=== PATIENT | female | born 1975 | race Caucasian/White ===

== ENCOUNTER 2017-08-20 12:36 | Emergency (ER) | payer MEDICAID, OTHER ==
[~2017-08-20] VITALS: Ht 167.6 cm; Wt 58.0 kg
[~2017-08-20 12:36] MED LIST: DEPA500T3 PO; DICY1TAB26 PO; LACT PO; METR-1 PO; NEUR100C PO; QUET100 PO
[2017-08-20 12:55] VITALS: BP 127/72; PULSE 116; RESP 15; TEMP 98; O2SAT 98
[2017-08-20] MEDS ORDERED: LURA20TA PO (12:56)
[2017-08-20] MEDS ORDERED: XANA2TAB2 PO (12:56)
[2017-08-20] MEDS ORDERED: DEPA500T PO (12:59)
[2017-08-20 13:43] LABS: AUTOMATED NEUTROPHIL # 4.3 TH/MM3 (1.8-7.7); BASOPHIL % 0.2 % (0.0-2.0); EOSINOPHIL # 0.1 TH/MM3 (0-0.4); EOSINOPHIL % 2.1 % (0.0-4.0); HEMATOCRIT 37.3 % (35.0-46.0); HEMO FLAGS DIFF FINAL; LYMPHOCYTE # 2.2 TH/MM3 (1.0-4.8); MEAN CELL VOLUME 85.8 FL (80.0-100.0); MEAN CORPUSCULAR HEMOGLOBIN 28.5 PG (27.0-34.0); MEAN CORPUSCULAR HGB CONC 33.2 % (32.0-36.0); MONO % 5.1 % (0.0-8.0); NEUT % 60.6 % (16.0-70.0); PLATELET COUNT 132 TH/MM3 (150-450); RED BLOOD COUNT 4.35 MIL/MM3 (4.00-5.30)
--- NOTE | 2017-08-20 13:53 | PD ---
HPI Chief Complaint: OD/ Ingestion Time Seen by Provider: 13:11 Travel History International Travel<30 days: No Contact w/Intl Traveler<30days: No Traveled to known affect area: No History of Present Illness HPI 41 yo F arrives by EMS 2/2 AMS on scene. Pt received Narcan 0.4mg and abruptly awake per EMS. In ED pt c/o chronic LLE pain and chronic RUQ pain, both multiple years in duration. Pt reports comliance with xanax and lortab as prescribed. She denies illicit drug abuse. No alcohol abuse. No intent of self- harm. Location generalized/neuropsych. Timing constant. PFSH Past Medical History Bipolar Disorder: Yes Anxiety: Yes Depression: Yes Diminished Hearing: No Endocrine: No Glaucoma: No Genitourinary: No Hepatitis: Yes (C) Hiatal Hernia: No Hypertension: Yes Immune Disorder: No Musculoskeletal: No Neurologic: No Psychiatric: Yes (Depression and Bipolar Disorder since she was a teenager) Reproductive: No Respiratory: Yes (PNEUMOTHORAX) Immunizations Current: Yes Migraines: Yes Myocardial Infarction: Yes Seizures: Yes Thyroid Disease: Yes (HYPO) Tetanus Vaccination: > 5 Years Influenza Vaccination: No ?: Not LMP: 07/2017 : 4 Para: 1 Miscarriage: 0 : 3 Tubal Ligation: Yes Past Surgical History Abdominal Surgery: Yes (appendectomy) Appendectomy: Yes Section: Yes Gynecologic Surgery: Yes (d+c) Other Surgery: Yes (left leg fasciotomy) Social History Alcohol Use: Yes Tobacco Use: No Substance Use: Yes Allergies-Medications (Allergen,Severity, Reaction): Coded Allergies: aripiprazole (Unverified Allergy, Severe, MUSCLE SPASMS, 08/20/17) morphine (Unverified Allergy, Severe, HALLUCINATIONS, 08/20/17) Reported Meds & Prescriptions Reported Meds & Active Scripts Active Reported Depakote DR (Divalproex Sodium) 500 Mg Tabdr 500 Mg PO BID Xanax (Alprazolam) 2 Mg Tab 2 Mg PO Q8H PRN Latuda (Lurasidone) 20 Mg Tab 15 Mg PO DAILY Review of Systems Except as stated in HPI: all other systems reviewed are Neg General / Constitutional: No: Fever Cardiovascular: No: Chest Pain or Discomfort, Palpitations Physical Exam Narrative GENERAL: 41 yo F, WNWD, no acute distress SKIN: Warm and dry. HEAD: Atraumatic. Normocephalic. EYES: Pupils equal and round. No scleral icterus. No injection or drainage. ENT: No nasal bleeding or discharge. Mucous membranes pink and moist. NECK: Trachea midline. No JVD. CARDIOVASCULAR: Regular rate and rhythm. RESPIRATORY: No accessory muscle use. Clear to auscultation. Breath sounds equal bilaterally. GASTROINTESTINAL: Abdomen soft, non-tender, nondistended. Hepatic and splenic margins not palpable. MUSCULOSKELETAL: Extremities without clubbing, cyanosis, or edema. No obvious deformities. NEUROLOGICAL: Awake and alert. No obvious cranial nerve deficits. Motor grossly within normal limits. Five out of 5 muscle strength in the arms and legs. Normal speech. PSYCHIATRIC: Appropriate mood and affect; insight and judgment normal. Data Data Last Documented VS Vital Signs Date Time Temp Pulse Resp B/P (MAP) Pulse Ox O2 Delivery O2 Flow Rate FiO2 08/20/17 12:55 98.0 116 15 127/72 (90) 98 VS reviewed Orders Orders Complete Blood Count With Diff (08/20/17 13:06) Comprehensive Metabolic Panel (08/20/17 13:06) Urinalysis - C+S If Indicated (08/20/17 13:06) Ed Urine Pregnancytest Poc (08/20/17 13:06) Drug Screen, Random Urine (08/20/17 13:06) Alcohol (Ethanol) (08/20/17 13:06) Salicylates (Aspirin) (08/20/17 13:06) Labs Laboratory Tests Test 08/20/17 13:05 White Blood Count 7.0 TH/MM3 Red Blood Count 4.35 MIL/MM3 Hemoglobin 12.4 GM/DL Hematocrit 37.3 % Mean Corpuscular Volume 85.8 FL Mean Corpuscular Hemoglobin 28.5 PG Mean Corpuscular Hemoglobin Concent 33.2 % Red Cell Distribution Width 15.0 % Platelet Count 132 TH/MM3 Mean Platelet Volume 9.6 FL Neutrophils (%) (Auto) 60.6 % Lymphocytes (%) (Auto) 32.0 % Monocytes (%) (Auto) 5.1 % Eosinophils (%) (Auto) 2.1 % Basophils (%) (Auto) 0.2 % Neutrophils # (Auto) 4.3 TH/MM3 Lymphocytes # (Auto) 2.2 TH/MM3 Monocytes # (Auto) 0.4 TH/MM3 Eosinophils # (Auto) 0.1 TH/MM3 Basophils # (Auto) 0.0 TH/MM3 CBC Comment DIFF FINAL Differential Comment MDM Medical Decision Making Medical Screen Exam Complete: Yes Emergency Medical Condition: Yes Medical Record Reviewed: Yes Differential Diagnosis polysubstance abuse, etoh abuse, alcoholism Narrative Course Pt eloped from ED shortly following bedside evaluation. Unfortunately this will be documented as a left against medical advise. Diagnosis Primary Impression: Left against medical advice Disposition: 07 AGAINST MEDICAL ADVICE Condition: Stable Jair Washburn MD Aug 20, 2017 13:53
[2017-08-20 14:05] LABS: ANION GAP 8 MEQ/L (5-15); BICARBONATE 25.9 MEQ/L (21.0-32.0); BLOOD UREA NITROGEN 15 MG/DL (7-18); CHLORIDE 107 MEQ/L (98-107); GLOMERULAR FILTRATION RATE 69 ML/MIN (>89); POTASSIUM 3.9 MEQ/L (3.5-5.1); SODIUM (NA) 141 MEQ/L (136-145)
[2017-08-20 14:06] LABS: ALCOHOL LESS THAN 3 MG/DL (0-5); ALT (GPT) 37 U/L (10-53); AST (GOT) 26 U/L (15-37)
[2017-08-20 14:09] LABS: ALKALINE PHOSPHATASE 65 U/L (45-117); TOTAL BILIRUBIN ADULT 0.2 MG/DL (0.2-1.0)
[2017-08-20 14:11] LABS: BACTERIA, URINE RARE /hpf; BLOOD, URINE LARGE (NEG); CALCIUM OXALATE CRYSTALS,URINE MOD /hpf; COMMENT (UR) CULTURE INDICATED; CULTURE IF INDICATED CULTURE INDICATED; GLUCOSE,URINE NEG (NEG); KETONE, URINE NEG (NEG); MUCUS URINE FEW /lpf (OCC); NITRITE,URINE NEG (NEG); PH, URINE 5.5 (5.0-8.5); SQUAMOUS EPITHELIAL CELL URINE 2 /hpf (0-5); URINE COLOR YELLOW (YELLW/STRAW)
== END 2017-08-20 13:30 | disposition left against medical advice (07) ==
LOC: NEPC 12:36
DX: R41.82 Altered mental status, unspecified (principal); M79.605 Pain in left leg; G89.29 Other chronic pain; F31.9 Bipolar disorder, unspecified; F41.9 Anxiety disorder, unspecified; I10 Essential (primary) hypertension; I25.2 Old myocardial infarction; R56.9 Unspecified convulsions; E03.9 Hypothyroidism, unspecified
CPT/HCPCS: 80053; 80307; 81001; 84703; 85025; 87086; 99283

== ENCOUNTER 2017-09-03 22:27 | Emergency (ER) | payer MEDICAID ==
[~2017-09-03] VITALS: Ht 160 cm; Wt 59.0 kg
[~2017-09-03 22:27] MED LIST changes: +DEPA500T PO; -DEPA500T3 PO; -DICY1TAB26 PO; -LACT PO; +LURA20TA PO; -METR-1 PO; -NEUR100C PO; -QUET100 PO; +XANA2TAB2 PO
[2017-09-03 22:40] VITALS: BP 140/98; PULSE 92; RESP 18; TEMP 97.6; O2SAT 98
[2017-09-03] MEDS ORDERED: BENZTROPINE MESYLATE 1 MG TAB PO ONE (22:45)
--- NOTE | 2017-09-03 23:16 | PD ---
HPI Chief Complaint: Allergic/Adverse Reaction Time Seen by Provider: 22:45 Travel History International Travel<30 days: No Contact w/Intl Traveler<30days: No Traveled to known affect area: No History of Present Illness HPI 41-year-old female presents to the emergency department for complaint of tongue spasm. According the patient she takes a to go which causes her to have some dystonic reaction affecting the tongue and it is typically managed well with Cogentin. Patient states that she does not have any Cogentin at home and restarted taking her what to do last evening. Patient states this evening she started noticing some symptoms consistent with her having spasm of the tongue. Patient has not had any urticaria no lip swelling tongue swelling throat swelling no stridor no hoarseness no shortness of breath no wheezing no near- syncope or syncope. Patient states these are typical symptoms that she has takes her Latuda antidepressant without taking Cogentin. Patient denies other concerns or complaints. PFSH Past Medical History Narrative Medical Anxiety depression hepatitis C hypertension pneumothorax migraine myocardial infarction hypothyroidism appendectomy left leg fasciotomy alcohol use substance use; nursing notes reviewed Bipolar Disorder: Yes Anxiety: Yes Depression: Yes Diminished Hearing: No Endocrine: No Gastrointestinal Disorders: No Glaucoma: No Genitourinary: No Hepatitis: Yes (C) Hiatal Hernia: No Hypertension: Yes Immune Disorder: No Implanted Vascular Access Dvce: No Medical other: No Musculoskeletal: No Neurologic: No Psychiatric: Yes (Depression and Bipolar Disorder since she was a teenager) Reproductive: No Respiratory: Yes (PNEUMOTHORAX) Immunizations Current: Yes Migraines: Yes Myocardial Infarction: Yes Seizures: Yes Thyroid Disease: Yes (HYPO) Tetanus Vaccination: > 5 Years Influenza Vaccination: No ?: Unknown LMP: 08/19/17 : 4 Para: 1 Miscarriage: 0 : 3 Tubal Ligation: Yes Past Surgical History Abdominal Surgery: Yes (appendectomy) Appendectomy: Yes Section: Yes Gynecologic Surgery: Yes (d+c) Other Surgery: Yes (left leg fasciotomy) Social History Alcohol Use: Yes Tobacco Use: No Substance Use: Yes Allergies-Medications (Allergen,Severity, Reaction): Coded Allergies: aripiprazole (Unverified Allergy, Severe, MUSCLE SPASMS, 09/03/17) morphine (Unverified Allergy, Severe, HALLUCINATIONS, 09/03/17) Reported Meds & Prescriptions Reported Meds & Active Scripts Active Reported Depakote DR (Divalproex Sodium) 500 Mg Tabdr 500 Mg PO BID Xanax (Alprazolam) 2 Mg Tab 2 Mg PO Q8H PRN Latuda (Lurasidone) 20 Mg Tab 15 Mg PO DAILY Review of Systems Except as stated in HPI: all other systems reviewed are Neg Physical Exam Narrative GENERAL: Well-developed well-nourished female in no acute distress no respiratory distress no stridor or hoarseness SKIN: Warm and dry. HEAD: Normocephalic. EYES: No scleral icterus. No injection or drainage. ENT: No angioedema airway is patent mild spasm of the tongue is noted as she holds the time towards the right cheek patient can make tongue midline. NECK: Supple, trachea midline. No JVD or lymphadenopathy. CARDIOVASCULAR: Regular rate and rhythm without murmurs, gallops, or rubs. RESPIRATORY: Breath sounds equal bilaterally. No accessory muscle use. GASTROINTESTINAL: Abdomen soft, non-tender, nondistended. MUSCULOSKELETAL: No cyanosis, or edema. BACK: Nontender without obvious deformity. No CVA tenderness. Data Data Last Documented VS Vital Signs Date Time Temp Pulse Resp B/P (MAP) Pulse Ox O2 Delivery O2 Flow Rate FiO2 09/04/17 00:54 81 18 98 Room Air 09/03/17 22:40 97.6 140/98 (112) Orders Orders Benztropine (Cogentin) (09/03/17 22:45) Ed Discharge Order (09/04/17 01:07) [facility] Medical Decision Making Medical Screen Exam Complete: Yes Emergency Medical Condition: Yes Medical Record Reviewed: Yes Differential Diagnosis adverse medication reaction dystonic reaction Narrative Course Patient states taking her latuda without Cogentin administered dose of cogentin 1 mg At 1:12 AM patient is asymptomatic and stable for outpatient management given refill of her Cogentin Diagnosis Primary Impression: Adverse drug reaction Qualified Codes: T88.7XXA - Unspecified adverse effect of drug or medicament, initial encounter Additional Impression: Medication refill Referrals: Primary Care Physician call for appointment Patient Instructions: General Instructions Med/Other Pt SpecificInfo: Prescription(s) given Scripts Benztropine (Benztropine) 0.5 Mg Tab 1 MG PO DAILY for 30 Days, TAB 0 Refills Prov: Tracie Hawkins MD 11/18/17 Disposition: 01 DISCHARGE HOME Condition: Stable Salter,Tracie H. MD Sep 03, 2017 23:16
[2017-09-04 00:54] VITALS: PULSE 81; RESP 18; O2SAT 98
[2017-09-04 01:11] VITALS: BP 128/78
[2017-09-04] MEDS ORDERED: BENZ0.5T PO (01:12)
== END 2017-09-04 01:17 | disposition home or self-care (01) ==
LOC: PHED 22:27
DX: T88.7XXA Unspecified adverse effect of drug or medicament, initial encounter (principal)
CPT/HCPCS: 99283